=== PATIENT | male | born 1960 | race Caucasian/White ===

== ENCOUNTER → 2021-12-23 | Outpatient (CLI) | payer BC | END | disposition home or self-care (01) | LOC: LABWHC1 09:05 | PROVIDERS: ATTEND Emergency Medicine | DX: Z20.822 Contact with and (suspected) exposure to COVID-19 (principal) | CPT/HCPCS: 87635 ==

== ENCOUNTER → 2022-01-21 | Outpatient (CLI) | payer BC | END | disposition home or self-care (01) | LOC: LABWHC1 09:13 | PROVIDERS: ATTEND Surgery | DX: D37.4 Neoplasm of uncertain behavior of colon (principal) | CPT/HCPCS: 36415; 82378 ==

== ENCOUNTER → 2022-01-22 | Outpatient (CLI) | payer BC ==
[2022-01-22 23:05] LABS: Basophils # (A) 0.05 X 10*3/uL (0.00-0.10); Basophils % (A) 0.5 %; Eosinophils # (A) 0.13 X 10*3/uL (0.04-0.35); Eosinophils % (A) 1.3 %; HGB 13.3 g/dL (13.0-17.0); Immature Grans, Automated 0.5 %; Lymphocytes # (A) 1.58 X 10*3/uL (0.90-5.00); MCH 28.7 pg (27.0-32.0); MCHC 30.9 g/dL (32.0-37.0); MCV 92.7 fL (80.0-97.0); Mean Platelet Volume 9.4 fL (9.5-12.2); Monocytes # (A) 0.64 X 10*3/uL (0.20-1.00); Monocytes % (A) 6.5 %; NRBC Per 100 WBC 0 /100 WBCS (0.0-0.0); Neutrophils # (A) 7.41 X 10*3/uL (1.80-7.70); Neutrophils % (A) 75.2 %; Platelet Count 282 X 10*3/uL (140-440); RBC 4.64 X 10*6/uL (4.40-5.60); RDW 12.7 % (11.5-14.5); WBC 9.86 X 10*3/uL (4.50-10.00)
[2022-01-23 02:14] LABS: African American GFR (CKD) 19.9 (60.0-200.0); Albumin 4.8 g/dL (3.8-4.9); BUN/Creat Ratio 13.58 Ratio (12.00-20.00); Blood Urea Nitrogen 48.9 mg/dL (9.0-27.0); Calcium 10.1 mg/dL (8.7-10.3); Globulin 2.4 g/dL (1.6-3.3); Non-African American GFR(CKD) 17.2 (60.0-200.0); Potassium 4.4 mmol/L (3.5-5.5); Total Bilirubin 0.3 mg/dL (0.30-1.20); Total Protein 7.2 g/dL (6.2-8.2)
== END | disposition home or self-care (01) ==
LOC: LABWHC1 14:27
PROVIDERS: ATTEND Family Medicine
DX: Z01.89 Encounter for other specified special examinations (principal)
CPT/HCPCS: 36415; 80053; 85025

== ENCOUNTER → 2022-01-25 | Outpatient (CLI) | payer BC ==
--- NOTE | 2022-01-27 00:06 | MR ---
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 Neoplasm of uncertain behavior of c olon. COMPARISON: None TECHNIQUE: Multiplanar multi-sequence imaging was performed without contrast. Post contrast imaging was performed. Post IV contrast subtraction images were also submitted for review. IV Contrast: None FINDINGS: LOWER CHEST: No gross irregularity. ABDOMEN Liver: Unremarkable. Gallbladder and Bile ducts: Unremarkable. Pancreas: Subcentimeter pancreatic tail cyst measuring 6 mm. No ductal dilatation or suspicious mass. Spleen: Unremarkable. Adrenal glands: Unremarkable. Kidneys: Lobular contour to the kidneys with atrophic appearance. Bilateral high T2 renal cysts measu ring up tor 2.1 cm and the left.. Stomach and Bowel: Unremarkable as visualized. Peritoneum: No evidence of pneumoperitoneum, free fluid, or adenopathy. Vasculature: Unremarkable. No aortic aneurysm. Abdominal wall: Fat-containing right inguinal hernia. Musculoskeletal: The osseous structures appear intact. Reproductive: Prostate: Unremarkable. Seminal vesicle's: Unremarkable. Testes: Unremarkable. IMPRESSION: 1. No evidence for lymphadenopathy or evidence for malignancy. There is no prior imaging due to comp are to. If prior imaging is made available with report comparison with addendum can be made. 2. Atrophic kidneys with cortical thinning bilaterally. 3. Subcentimeter pancreatic tail cyst measuring 6 mm. 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 Consider follow-up in one year.
== END | disposition home or self-care (01) ==
LOC: RADMRIMAIN 19:45
PROVIDERS: ATTEND Surgery
DX: D37.4 Neoplasm of uncertain behavior of colon (principal); N26.1 Atrophy of kidney (terminal); K86.89 Other specified diseases of pancreas
CPT/HCPCS: 72195; 74181

== ENCOUNTER → 2022-11-10 | Outpatient (CLI) | payer BC ==
[2022-11-10 16:07] LABS: ALT 14 U/L (10-49); AST 16 U/L (14-35); Albumin 4.2 d/dL (3.8-4.9); Albumin/Globulin Ratio 1.56 Ratio (1.60-3.17); Alkaline Phosphatase 188 U/L (41-126); BUN/Creat Ratio 11.58 Ratio (12.00-20.00); Calcium 10.2 mg/dL (8.7-10.3); Carbon Dioxide 18.6 mmol/L (21.6-31.8); Chloride 111 mmol/L (96-109); Globulin 2.7 d/dL (1.6-3.3); Glucose 126 mg/dL (70-110); Potassium 5.4 mmol/L (3.5-5.5); Sodium 147 mmol/L (135-145); Total Bilirubin 0.2 mg/dL (0.3-1.2); Total Protein 6.9 d/dL (6.2-8.2)
== END | disposition home or self-care (01) ==
LOC: LABWHC1 10:13
PROVIDERS: ATTEND Family Medicine
DX: N18.5 Chronic kidney disease, stage 5 (principal); L40.59 Other psoriatic arthropathy
CPT/HCPCS: 36415; 80053; 83970; 85652

== ENCOUNTER → 2022-11-12 | Outpatient (CLI) | payer BC ==
--- NOTE | 2022-11-12 17:19 | XR ---
EXAMINATION TYPE: XR wrist complete RT DATE OF EXAM: 11/12/2022 COMPARISON: NONE HISTORY: 61-year-old male M25.531 PAIN IN RIGHT WRIST TECHNIQUE: 4 views FINDINGS: Degenerative change distal radioulnar joint. Some joint space narrowing is also present at the radioc arpal joint. There is slight sclerosis at the ulnar proximal aspect of the lunate bone. No acute frac ture, subluxation, or dislocation seen. IMPRESSION: 1. 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 2. Moderate to severe degenerative change distal radioulnar joint. 3. 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 4. No acute osseous abnormality seen.
== END | disposition home or self-care (01) ==
LOC: RADXRMAIN 15:21
PROVIDERS: ATTEND Family Medicine
DX: M19.031 Primary osteoarthritis, right wrist (principal)

== ENCOUNTER → 2023-05-26 | Outpatient (CLI) | payer BC ==
--- NOTE | 2023-05-26 17:10 | US ---
EXAMINATION TYPE: US thyroid st tissue head/neck DATE OF EXAM: 05/26/2023 COMPARISON: NONE CLINICAL INDICATION: Male, 62 years old with history of E04.2 NONTOXIC MULTINODULAR GOITER; GLAND SIZE: Right Lobe: 5.1 x 1.2 x 1.4 cm Overall Parenchyma: heterogeneous Left Lobe: 4.5 x 0.9 x 1.0 cm Overall Parenchyma: heterogeneous Isthmus Thickness: 0.2 cm NODULES RIGHT: # of nodules measured on right: 0 LEFT: # of nodules measured on left: 0 ISTHMUS: # of nodules measured in the isthmus: 0 Bilateral neck scanned, no evidence of lymphadenopathy. IMPRESSION: 1. No thyroid nodules 2. No thyromegaly 2017 ACR TI-RADS LEVEL: 0 *Highest TI-RADS level nodule reported
== END | disposition home or self-care (01) ==
LOC: RADUSWWP 10:14
PROVIDERS: ATTEND Family Medicine
DX: E04.2 Nontoxic multinodular goiter (principal)
CPT/HCPCS: 76536

== ENCOUNTER → 2023-05-26 | Outpatient (CLI) | payer BC ==
[2023-05-26 16:38] LABS: Chol/HDL Ratio 6.78 Ratio; LDL Cholesterol,Calculated 242.3 mg/dL (0.0-131.0); T4, Free (Free Thyroxine) 1.35 ng/dL (0.80-1.80)
== END | disposition home or self-care (01) ==
LOC: LABWHC1 09:27
PROVIDERS: ATTEND Family Medicine
DX: Z00.00 Encounter for general adult medical examination without abnormal findings (principal); Z12.5 Encounter for screening for malignant neoplasm of prostate; M10.00 Idiopathic gout, unspecified site; E03.8 Other specified hypothyroidism
CPT/HCPCS: 84439; 80061; 84443; 84550; 83036; 36415; G0103

== ENCOUNTER → 2023-07-28 | Outpatient (CLI) | payer BC ==
--- NOTE | 2023-07-31 21:02 | PE ---
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 Images are reviewed on the computer in the coronal, a xial, and sagittal planes. Reconstructed rotating images are created on independent workstation and reviewed on the computer. A non-contrast CT is performed in conjunction with the PET scan. Glucose level 114 mg/dL CT DLP: 632 mGycm, Automated exposure control for dose reduction was used. COMPARISON: CT None, PET/CT None, MRI: 01/25/2022 FINDINGS: Mediastinal SUV mean is 1.9. Hepatic parenchyma SUV mean is 3.2. SKULL BASE AND NECK: No suspicious radiotracer activity. Mucosal the left oropharynx demonstrates FDG avid mass which also appears involve the soft palate. Ma x SUV 16.2. No enlarged or FDG avid lymph nodes identified. CHEST, MEDIASTINUM, AND HILAR REGION: No suspicious radiotracer activity. ABDOMEN AND PELVIS: No suspicious radiotracer activity. MUSCULOSKELETAL STRUCTURES: No suspicious radiotracer activity. OTHER CT: Atherosclerosis of the arterial vasculature crowding the carotid bifurcations and coronary arteries. Colonic diverticulosis. Atrophic kidneys bilaterally. Fat-containing umbilical hernia. Milvia toneal dialysis tubing terminates in the lower pelvis. Posteromedially. Right fat-containing inguinal hernia. IMPRESSION: Abnormal FDG avid mass in the left oropharynx mucosa compatible with malignancy. No suspicious FDG av id enlarged lymph nodes identified at this time
== END | disposition home or self-care (01) ==
LOC: RADPETMAIN 10:53
PROVIDERS: ATTEND Otolaryngology
DX: C09.9 Malignant neoplasm of tonsil, unspecified (principal)
CPT/HCPCS: 78815; A9552

== ENCOUNTER → 2023-08-04 | Outpatient (CLI) | payer BC ==
[2023-08-04 14:38] LABS: Basophils # (A) 0.09 X 10*3/uL (0.00-0.10); Basophils % (A) 0.7 %; Eosinophils # (A) 0.47 X 10*3/uL (0.04-0.35); Eosinophils % (A) 3.6 %; HCT 38.2 % (39.6-50.0); HGB 11.8 g/dL (13.0-17.0); Lymphocytes # (A) 1.78 X 10*3/uL (0.90-5.00); Lymphocytes % (A) 13.6 %; MCH 28.2 pg (27.0-32.0); MCHC 30.9 g/dL (32.0-37.0); MCV 91.4 FL (80.0-97.0); Mean Platelet Volume 9.3 FL (9.5-12.2); Monocytes # (A) 1.07 X 10*3/uL (0.20-1.00); Monocytes % (A) 8.2 %; NRBC Per 100 WBC 0 X 10*3/uL (0.00-0.01); Neutrophils # (A) 9.59 X 10*3/uL (1.80-7.70); Neutrophils % (A) 73.1 %; Platelet Count 275 X 10*3/uL (140-440); RBC 4.18 X 10*6/uL (4.40-5.60); WBC 13.11 X 10*3/uL (4.50-10.00)
[2023-08-04 14:54] LABS: ALT 9 U/L (10-49); AST 15 U/L (14-35); Albumin 4.1 g/dL (3.8-4.9); Albumin/Globulin Ratio 1.78 Ratio (1.60-3.17); Alkaline Phosphatase 117 U/L (41-126); BUN/Creat Ratio 8.29 Ratio (12.00-20.00); Blood Urea Nitrogen 51.4 mg/dL (9.0-27.0); Carbon Dioxide 22.6 mmol/L (21.6-31.8); Chloride 105 mmol/L (96-109); Globulin 2.3 g/dL (1.6-3.3); Glucose 122 mg/dL (70-110); Magnesium 1.8 mg/dL (1.5-2.4); Potassium 4.1 mmol/L (3.5-5.5); Sodium 144 mmol/L (135-145); Total Bilirubin <0.2 mg/dL (0.3-1.2); Total Protein 6.4 g/dL (6.2-8.2)
== END | disposition home or self-care (01) ==
LOC: LABWHC1 10:18
PROVIDERS: ATTEND Internal Medicine Hematology & Oncology
DX: I12.9 Hypertensive chronic kidney disease with stage 1 through stage 4 chronic kidney disease, or unspecified chronic kidney disease (principal); N18.9 Chronic kidney disease, unspecified; E03.9 Hypothyroidism, unspecified
CPT/HCPCS: 36415; 80053; 83735; 85025

== ENCOUNTER 2023-08-15 08:41 | Day surgery (SDC) | payer BC ==
[2023-08-12 12:34] VITALS: BMI 23.3
[~2023-08-15 08:41] MED LIST: LACTATED RINGERS 1,000 ML IV SCH; METOCLOPRAMIDE 5 MG/ML 2 ML VIAL IVP PRN; Pre Op ABX Message 1 EACH MISC MISCELLANE ONE; fentaNYL (PF) 50 MCG/ML 2 ML AMP IV PRN
[2023-08-15 09:05] VITALS: TEMP 97
[2023-08-15] MEDS: IV FLUID CONTINUATION 1,000 ML IV ONE (09:16)
[2023-08-15] MEDS: SODIUM CHLORIDE 0.9% 1,000 ML BAG IV STA (09:19)
[2023-08-15] MEDS: HEPARIN SODIUM,PORCINE 5,000 UNIT/ML 1 ML VIAL SQ PRN (09:25)
[2023-08-15] MEDS: ONDANSETRON 4 MG/2 ML VIAL IVP ONE (09:25)
[2023-08-15] MEDS: ACETAMINOPHEN TAB 500 MG TAB PO PRN (09:25)
[2023-08-15] MEDS: DEXAMETHASONE SOD PHOSPHATE 4 MG/ML 1 ML VIAL IVP STA (09:26)
[2023-08-15] MEDS ORDERED: LIDOCAINE 1% INJ 10MG/ML (20 ML MDV) ONE (11:29)
[2023-08-15] MEDS ORDERED: PHENYLEPHRINE 10 MG/ML VIAL ONE (11:29)
[2023-08-15] MEDS ORDERED: KETAMINE HCL IN 0.9 % NACL 50 MG/5 ML SYRINGE ONE (11:29)
[2023-08-15] MEDS ORDERED: fentaNYL (PF) 50 MCG/ML 2 ML AMP ONE (11:29)
[2023-08-15] MEDS ORDERED: PROPOFOL 10 MG/ML 20 ML VIAL IV ONE (11:29)
[2023-08-15] MEDS ORDERED: MIDAZOLAM 2 MG/2 ML VIAL ONE (11:29)
[2023-08-15] MEDS: SODIUM CHLORIDE 0.9% 50 ML with ceFAZolin 2,000 MG IV ONE (11:34)
--- NOTE | 2023-08-15 11:38 | P.GSHP ---
History of Present Illness H&P Date: 08/15/23 Chief Complaint: Left tonsillar cancer 62-year-old male here for Port-A-Cath placement. Patient will begin chemoradiation later this week or early next week. Patient has not had a port previously. Has poor IV access. Past Medical History Past Medical History: Cancer, Dialysis, Hypertension, Pneumonia, Renal Disease, Thyroid Disorder Additional Past Medical History / Comment(s): Recently dx June 2023- "cancer lt tonsil, tongue, and soft pallet". "My left eye and left side of face is swollen." Some lt ear pain r/t dx. Paritoneal dialysis. "Lt kidney is necrotic." Hx stage II colon cancer 2 years ago no radiation or chemo. Colostomy bag w/reversal. Gout. History of Any Multi-Drug Resistant Organisms: None Reported Past Surgical History: Appendectomy Additional Past Surgical History / Comment(s): "Lower anterior ostimosis." " Ileostomy- temporary". Kidney surgery in childhood. Scope to lt shouler t/o bone spurs. "Slightly torn Rt knee patella tendon- had surgery. Past Anesthesia/Blood Transfusion Reactions: No Reported Reaction Additional Past Anesthesia/Blood Transfusion Reaction / Comment(s): No hx of blood transfusion. Smoking Status: Never smoker - Past Family History Mother Family Medical History: Cancer Additional Family Medical History / Comment(s): Breast cancer Father Family Medical History: Cancer Additional Family Medical History / Comment(s): prostate cancer Medications and Allergies Home Medications Medication Instructions Recorded Confirmed Type Febuxostat [Uloric] 80 mg PO HS 08/12/23 08/15/23 History Furosemide [Lasix] 40 mg PO BID 08/12/23 08/15/23 History Levothyroxine Sodium [Synthroid] 100 mcg PO 08/12/23 08/15/23 History Metoprolol Tartrate [Lopressor] 25 mg PO BID 08/12/23 08/15/23 History Omeprazole [PriLOSEC] 20 mg PO AC-BRKFST PRN 08/12/23 08/15/23 History Vit B/Folic Acid(Unknown Dose) 1 dose PO QAM 08/12/23 08/12/23 History Vitamin D(Unknown Dose) 5,000 units PO QAM 08/12/23 History Zolpidem Tartrate [Ambien] 5 mg PO HS 08/12/23 08/15/23 History amLODIPine BESYLATE [Amlodipine 10 mg PO HS 08/12/23 08/15/23 History Besylate] traZODone HCL [Desyrel] 100 mg PO HS 08/12/23 08/15/23 History Allergies Allergy/AdvReac Type Severity Reaction Status Date / Time No Known Allergies Allergy Verified 08/15/23 08:56 Surgical - Exam Vital Signs Temp Pulse Resp BP Pulse Ox 97.0 F L 94 16 132/64 98 08/15/23 09:04 08/15/23 09:04 08/15/23 09:04 08/15/23 09:04 08/15/23 09:04 Physical exam: General: Well-developed, well-nourished HEENT: Normocephalic, sclerae nonicteric Abdomen: Nontender, nondistended Extremities: No edema Neuro: Alert and oriented Results - Labs 08/15/23 09:15 Diabetes panel 08/15/23 Range/Units 09:15 Potassium 3.9 (3.5-5.1) mmol/L Pituitary panel 08/15/23 Range/Units 09:15 Potassium 3.9 (3.5-5.1) mmol/L Adrenal panel 08/15/23 Range/Units 09:15 Potassium 3.9 (3.5-5.1) mmol/L Assessment and Plan (1) Tonsillar cancer Narrative/Plan: Will proceed with Port-A-Cath placement at this time. Risks of bleeding, infection, DVT, pneumothorax, catheter malfunction, anesthesia related complications were discussed. The patient understands and wishes to proceed. Current Visit: Yes Status: Acute Code(s): C09.9 - MALIGNANT NEOPLASM OF TONSIL, UNSPECIFIED SNOMED Code(s): 432094866
[2023-08-15] MEDS: BUPIVACAINE (PF) 0.25% 30 ML VIAL SQ ONE ×2 (11:56)
[2023-08-15] MEDS: HEPARIN SODIUM,PORCINE 100 UNIT/ML 5 ML VIAL IV ONE (12:07)
[2023-08-15] MEDS ORDERED: NALOXONE 0.4 MG/ML 1 ML VIAL IV PRN (12:16)
[2023-08-15] MEDS ORDERED: HYDROcodone/APAP 5-325MG 1 EACH TAB PO PRN (12:16)
--- NOTE | 2023-08-15 12:18 | P.OP ---
Date of Procedure: 08/15/23 Procedure(s) Performed: PREOPERATIVE DIAGNOSIS: Tonsillar cancer POSTOPERATIVE DIAGNOSIS: Same PROCEDURE: Port-A-Cath placement with fluoroscopic and ultrasound guidance SURGEON: Rachel EBL: Minimal ANESTHESIA: Sedation and local COMPLICATIONS: None OPERATIVE PROCEDURE: Patient was brought and placed on the operative table in the supine position. The patient was placed under general anesthesia at that time. The chest and neck were prepped and draped in usual sterile fashion. The ultrasound probe was used to identify the location of the right internal jugular vein. The skin was localized with lidocaine. The Seldinger needle was advanced into the IJ under ultrasound guidance. The wire was advanced through the needle under fluoroscopic guidance into the superior vena cava. A port pocket was created in the right infraclavicular location. The catheter was tunneled from the wire entrance site to the port pocket. The port was then connected to the catheter. The dilator introducer was threaded over the guidewire. The guidewire and dilator were then removed. The catheter was advanced through the introducer and introducer was then removed. The tip was seen to be in the right atrial junction via fluoroscopy. A picture of the radiograph showing the tip of the catheter was taken. Port was flushed with both saline and a Hep-Lock solution. There was good flow both in and out of the port. The port was sutured in underlying tissues using 3-0 silk sutures. The subcutaneous tissues were reapproximated using 3-0 Vicryl sutures and the skin at both locations using 4-0 Monocryl sutures. Skin glue and sterile dressings then applied. DISPOSITION: Stable to recovery room
--- NOTE | 2023-08-15 12:28 | FL ---
EXAMINATION TYPE: FL guided central line placemt Intraoperative/procedural fluoroscopic services were provided. Total fluoroscopy time is 3 seconds with a total of 1 submitted images to PACS. Please see the operative/procedural note for further details. DAP: 0.1655 mGym2
--- NOTE | 2023-08-15 12:58 | XR ---
EXAMINATION TYPE: XR chest 1V confirm line [facility] DATE OF EXAM: 08/15/2023 COMPARISON: NONE HISTORY: 62 year-old male check line TECHNIQUE: Single frontal view of the chest is obtained. FINDINGS: Right anterior chest wall injection port. Catheter tip at the lower SVC. There is superior hairpin turn is outside the field of view. Heart normal size. No appreciable pneumothorax. Mild inte rstitial prominence and hyperinflation. Otherwise, no consolidation or pleural effusion. IMPRESSION: 1. Right anterior chest wall injection port. The superior hairpin turn is outside the field of view. Tip at the lower SVC level. 2. COPD. Interstitial prominence probably chronic.
[2023-08-15 13:28] VITALS: BP 109/69; PULSE 62; RESP 18
== END 2023-08-15 13:41 | disposition home or self-care (01) ==
LOC: OR 08:41
PROVIDERS: ATTEND Surgery
DX: C09.0 Malignant neoplasm of tonsillar fossa (principal); I10 Essential (primary) hypertension; E07.9 Disorder of thyroid, unspecified; J44.9 Chronic obstructive pulmonary disease, unspecified; M10.9 Gout, unspecified; N28.9 Disorder of kidney and ureter, unspecified; Z79.890 Hormone replacement therapy; Z85.038 Personal history of other malignant neoplasm of large intestine; Z90.49 Acquired absence of other specified parts of digestive tract; Z93.3 Colostomy status; Z99.2 Dependence on renal dialysis; Z79.899 Other long term (current) drug therapy
CPT/HCPCS: 84132; 77001; 36561; C1788; J2250; J1644; J1642; J1100; J2405; J0690; J2001; J3010; J2704; J2371; J0665

== ENCOUNTER 2023-09-01 12:45 | Day surgery (SDC) | payer BC ==
[2023-09-01] MEDS ORDERED: LIDOCAINE 1% INJ 10MG/ML (20 ML MDV) ONE (13:15)
[2023-09-01] MEDS ORDERED: fentaNYL (PF) 50 MCG/ML 2 ML AMP ONE (13:15)
[2023-09-01 13:17] VITALS: PULSE 80; RESP 16; TEMP 979
[2023-09-01] MEDS: IOPAMIDOL-370 100ML BTL INJ ONE (13:31)
--- NOTE | 2023-09-01 15:28 | P.OP ---
Date of Procedure: 09/01/23 Description of Procedure: Preoperative diagnosis: Malfunctioning port Postoperative diagnosis: Same Procedure: Portogram with fluoroscopic interpretation Surgeon: Josephine Robles D.O. EBL: Less than 5 cc IV fluids: None Urine output: None Drains: None Complications: None immediately apparent Condition: Stable to recovery Operative indication and findings: Patient is a 62-year-old male undergoing chemotherapy and has been recently having issues with his port malfunctioning. He is here today for evaluation. Risk and benefits were discussed including but not limited to bleeding, infection. He seems understood and was willing to proceed. Procedure in detail: The patient was taken to the special suite and placed in supine position. The chest wall port was cleansed and draped in usual sterile fashion. Initially utilizing the fluoroscopy, an image was obtained. There was some evidence of redundancy of the catheter itself however no obvious kinking or loops. Due to this the decision was made to access. Access was obtained with mild difficulty in aspiration of the port however it flushed very easily. A portogram was performed showing a widely patent outflow with the catheter in good resting position in the cavoatrial junction. There is no significant visualization of fibrinous Sheath. The procedure was concluded and the Ron needle was removed and a dressing was placed. May utilize the catheter for infusion. Flushing normally on imaging with good position.
== END 2023-09-01 13:48 | disposition home or self-care (01) ==
LOC: CATHCVL 12:45
PROVIDERS: ATTEND Surgery
DX: T85.618A Breakdown (mechanical) of other specified internal prosthetic devices, implants and grafts, initial encounter (principal); Z79.890 Hormone replacement therapy; Z79.899 Other long term (current) drug therapy; Y84.8 Other medical procedures as the cause of abnormal reaction of the patient, or of later complication, without mention of misadventure at the time of the procedure
CPT/HCPCS: 36598; Q9967

== ENCOUNTER → 2024-01-19 | Outpatient (CLI) | payer BC ==
--- NOTE | 2024-01-19 18:39 | PE ---
EXAMINATION TYPE: PET CT fusion skull to thigh DATE OF EXAM: 01/19/2024 CLINICAL INDICATION:Male, 63 years old with history of C09.8 HEAD AND NECK CANCER; history of colon c ancer 2020. TECHNIQUE: Following the intravenous administration of 13.07 mCi of F-18 FDG, whole body images are performed from the skull base to the midthigh. Images are reviewed on the computer in the coronal, axial, and sagittal planes. Reconstructed rotating images are created on independent workstation and reviewed on the computer. A non-contrast CT is performed in conjunction with the PET scan. Glucose level 106 mg/dL CT DLP: 500.95/632.46 mGycm, Automated exposure control for dose reduction was used. COMPARISON: CT None, PET/CT 07/28/2023, MRI: 01/25/2022 FINDINGS: Mediastinal SUV mean is 2.0. Hepatic parenchyma SUV mean is 2.6. SKULL BASE AND NECK: Decreased size and FDG activity within the left oropharynx with a maximum SUV now of 7.3, previously 16.2. No enlarged or FDG avid lymph nodes identified. CHEST, MEDIASTINUM, AND HILAR REGION: No suspicious radiotracer activity. ABDOMEN AND PELVIS: There is again focal radiotracer uptake identified within the descending colon with a maximum SUV of 31.8 (image 183/125, fused axial series). Additional regions of probable physiologic uptake within the bowel. MUSCULOSKELETAL STRUCTURES: No suspicious radiotracer activity. OTHER CT: Right anterior chest wall IJ Mediport catheter with distal tip terminating in the mid SVC. Atherosclerosis of the arterial vasculature crowding the carotid bifurcations and coronary arteries. Colonic diverticulosis. Atrophic kidneys bilaterally. Peritoneal dialysis tubing terminates in the lo wer pelvis. Small amount of free fluid in the pelvis. Pneumoperitoneum. Right fat-containing inguinal hernia. Postsurgical changes of the rectum with anastomosis. Additional anastomosis involving the sm all bowel within the pelvis. IMPRESSION: 1. Positive response to therapy with decreased size and FDG activity involving the left oropharyngea l cancer. 2. Redemonstration of focal FDG activity involving the descending colon which raises possibility of recurrent/residual colon cancer versus a focal infectious/inflammatory process or physiologic uptake. Direct visualization is recommended. 3. Pneumoperitoneum which is likely related to peritoneal dialysis. Correlate clinically. [facility], , 01/19/2024 6:36 PM
== END | disposition home or self-care (01) ==
LOC: RADPETMAIN 09:55
PROVIDERS: ATTEND Radiology Radiation Oncology
DX: C09.8 Malignant neoplasm of overlapping sites of tonsil (principal); C10.9 Malignant neoplasm of oropharynx, unspecified; Z85.038 Personal history of other malignant neoplasm of large intestine
CPT/HCPCS: 78815; A9552

== ENCOUNTER → 2024-01-26 | Outpatient (CLI) | payer BC ==
[2024-01-26 15:26] LABS: Anion Gap 13.8 mmol/L (4.00-12.00); Carbon Dioxide 28.2 mmol/L (21.6-31.8); Magnesium 2.6 mg/dL (1.5-2.4); Potassium 3.8 mmol/L (3.5-5.5); T4, Free (Free Thyroxine) 1.81 ng/dL (0.80-1.80)
== END | disposition home or self-care (01) ==
LOC: LABWHC1 08:15
PROVIDERS: ATTEND Internal Medicine Nephrology
DX: N18.6 End stage renal disease (principal); R79.9 Abnormal finding of blood chemistry, unspecified; E03.8 Other specified hypothyroidism
CPT/HCPCS: 36415; 80051; 83735; 84439; 84443

== ENCOUNTER → 2024-02-16 | Outpatient (CLI) | payer BC | END | disposition home or self-care (01) | LOC: LABWHC1 16:17 | DX: C18.6 Malignant neoplasm of descending colon (principal) | CPT/HCPCS: 36415; 82378 ==

== ENCOUNTER 2024-05-04 09:33 | Day surgery (SDC) | payer BC ==
[2024-05-02 11:06] VITALS: BMI 21.4
[~2024-05-04 09:33] MED LIST changes: +HYDROmorphone 0.5 MG/0.5 ML SYRINGE IVP PRN; -METOCLOPRAMIDE 5 MG/ML 2 ML VIAL IVP PRN; +MIDAZOLAM 2 MG/2 ML VIAL IV PRN; -Pre Op ABX Message 1 EACH MISC MISCELLANE ONE; +SCOPOLAMINE 1 MG/72 HR PATCH TRANSDERM ONE; -fentaNYL (PF) 50 MCG/ML 2 ML AMP IV PRN
[2024-05-04] MEDS: ACETAMINOPHEN TAB 500 MG TAB PO PRN (10:00)
[2024-05-04 10:23] VITALS: TEMP 97.4
[2024-05-04] MEDS: SODIUM CHLORIDE 0.9% 500 ML 500 ML IV ONE (10:24)
[2024-05-04] MEDS: ONDANSETRON 4 MG/2 ML VIAL IVP ONE (10:25)
[2024-05-04] MEDS: HEPARIN SODIUM,PORCINE 5,000 UNIT/ML 1 ML VIAL SQ PRN (10:25)
[2024-05-04] MEDS: DEXAMETHASONE SOD PHOSPHATE 4 MG/ML 1 ML VIAL IV ONE (10:25)
--- NOTE | 2024-05-04 10:40 | P.GSHP ---
History of Present Illness H&P Date: 05/04/24 Chief Complaint: Head neck cancer 63-year-old male known to our service. Patient had previous Port-A-Cath placed for head neck cancer treatment. Has done well with that. Recent studies show no active disease. Here today for Port-A-Cath removal. Past Medical History Past Medical History: Cancer, Dialysis, Hypertension, Pneumonia, Renal Disease, Thyroid Disorder Additional Past Medical History / Comment(s): June 2023- "cancer of left tonsil, tongue, and soft palate". Peritoneal dialysis nightly. "Let kidney is necrotic." Hx stage II colon cancer 2021, no radiation or chemo, had colostomy and which was later reversed. Gout, no problems in a few yrs. History of Any Multi-Drug Resistant Organisms: None Reported Past Surgical History: Appendectomy, Orthopedic Surgery Additional Past Surgical History / Comment(s): "Lower anterior ostimosis." "Ileostomy- temporary". Kidney surgery in childhood. Left shoulder arthroscopy, right knee surgery. Past Anesthesia/Blood Transfusion Reactions: No Reported Reaction Additional Past Anesthesia/Blood Transfusion Reaction / Comment(s): No hx of blood transfusion. Smoking Status: Never smoker - Past Family History Mother Family Medical History: Cancer Additional Family Medical History / Comment(s): Breast cancer. Father Family Medical History: Cancer Additional Family Medical History / Comment(s): Prostate cancer. Medications and Allergies Home Medications Medication Instructions Recorded Confirmed Type Levothyroxine Sodium [Synthroid] 100 mcg PO HS 08/12/23 05/04/24 History Metoprolol Tartrate [Lopressor] 25 mg PO HS 08/12/23 05/04/24 History Omeprazole [PriLOSEC] 20 mg PO AC-BRKFST PRN 08/12/23 05/04/24 History Zolpidem Tartrate [Ambien] 5 mg PO HS 08/12/23 05/04/24 History HYDROcodone/APAP 5-325MG [[place] 1 tab PO Q4HR PRN 08/31/23 05/04/24 History 5-325] Ondansetron [Zofran] 4 mg PO Q12H PRN 09/01/23 05/04/24 History Colchicine 0.6 mg PO DAILY PRN 05/02/24 05/04/24 History Febuxostat 40 mg PO HS 05/02/24 05/04/24 History Vitamin B Complex 1 each PO QAM 05/02/24 05/04/24 History Vitamin D (Unknown Dose) 1 tab PO DAILY 05/02/24 05/04/24 History traZODone HCL [Desyrel] 100 mg PO HS 05/02/24 05/04/24 History Allergies Allergy/AdvReac Type Severity Reaction Status Date / Time No Known Allergies Allergy Verified 05/04/24 09:56 Surgical - Exam Vital Signs Temp Pulse Resp BP Pulse Ox 97.4 F L 69 18 137/66 99 05/04/24 10:22 05/04/24 10:22 05/04/24 10:22 05/04/24 10:22 05/04/24 10:22 Physical exam: General: Well-developed, well-nourished HEENT: Normocephalic, sclerae nonicteric Abdomen: Nontender, nondistended Extremities: No edema Neuro: Alert and oriented Results - Labs 05/04/24 10:18 Diabetes panel 05/04/24 Range/Units 10:18 Potassium 4.3 (3.5-5.1) mmol/L Pituitary panel 05/04/24 Range/Units 10:18 Potassium 4.3 (3.5-5.1) mmol/L Adrenal panel 05/04/24 Range/Units 10:18 Potassium 4.3 (3.5-5.1) mmol/L Assessment and Plan (1) Tonsillar cancer Narrative/Plan: Will proceed with Port-A-Cath removal at this time. Current Visit: No Status: Acute Code(s): C09.9 - MALIGNANT NEOPLASM OF TONSIL, UNSPECIFIED SNOMED Code(s): 628079196
[2024-05-04] MEDS ORDERED: MIDAZOLAM 2 MG/2 ML VIAL ONE (11:47)
[2024-05-04] MEDS ORDERED: fentaNYL (PF) 50 MCG/ML 2 ML AMP ONE (11:47)
[2024-05-04] MEDS ORDERED: PROPOFOL 10 MG/ML 20 ML VIAL IV ONE (11:47)
[2024-05-04] MEDS: BUPIVACAINE (PF) 0.25% 30 ML VIAL SQ ONE ×2 (12:00→12:01)
[2024-05-04 12:25] VITALS: RESP 16
[2024-05-04 12:35] VITALS: BP 108/74; PULSE 60
--- NOTE | 2024-05-04 12:44 | P.OP ---
Date of Procedure: 05/04/24 Procedure(s) Performed: PREOPERATIVE DIAGNOSIS: Tonsillar cancer POSTOPERATIVE DIAGNOSIS: Same PROCEDURE: Port-A-Cath removal SURGEON: Rachel EBL: Minimal ANESTHESIA: Sedation COMPLICATIONS: None OPERATIVE PROCEDURE: Patient was placed in the supine position. The patient was sedated per anesthesia that time. The chest was prepped and draped in the usual sterile fashion. The skin was localized with Marcaine solution. The previous incision was re-incised using a scalpel. The port was easily excised using accommodation of blunt dissection sharp dissection and electrocautery. The subcutaneous tissues were reapproximated using 3-0 Vicryl sutures. The skin was reapproximated using 4-0 Monocryl sutures. Skin glue was then applied. DISPOSITION: Stable to recovery room
== END 2024-05-04 12:53 | disposition home or self-care (01) ==
LOC: OR 09:33
PROVIDERS: ATTEND Surgery
DX: Z45.2 Encounter for adjustment and management of vascular access device (principal); I12.9 Hypertensive chronic kidney disease with stage 1 through stage 4 chronic kidney disease, or unspecified chronic kidney disease; N18.9 Chronic kidney disease, unspecified; E07.9 Disorder of thyroid, unspecified; Z79.890 Hormone replacement therapy; Z85.038 Personal history of other malignant neoplasm of large intestine; Z90.49 Acquired absence of other specified parts of digestive tract; Z79.899 Other long term (current) drug therapy; Z85.89 Personal history of malignant neoplasm of other organs and systems
CPT/HCPCS: 84132; 36590; J2250; J1644; J1100; J0690; J2405; J3010; J2704; J0665

== ENCOUNTER → 2024-06-22 | Outpatient (CLI) | payer BC ==
--- NOTE | 2024-06-22 13:58 | FL ---
EXAMINATION TYPE: FL barium swallow w video DATE OF EXAM: 06/22/2024 MODIFIED SWALLOW / DEGLUTITION STUDY CLINICAL HISTORY: Dysphagia. History of tonsillar/throat cancer. Patient had chemotherapy and radiati on treatment. TECHNIQUE: Deglutition study is performed utilizing thin liquid barium, barium thick pudding, and ba rium coated cracker. 1 minute of fluoro time and 1 images obtained. Total dose area product (DAP) i n uGy*m?, mGy*cm? (or similar): n/p COMPARISON: None. FINDINGS: The oral and pharyngeal phases show satisfactory initiation and propagation with all modali ties tested. Normal mastication is seen with solid modalities tested. There is no evidence of penet ration or aspiration with any modality tested. Moderate pharyngeal residue was appreciated with solid modalities. IMPRESSION: No aspiration seen. Please refer to speech therapist notes for further details if necess andrea. [facility], , 06/22/2024 1:56 PM
== END | disposition home or self-care (01) ==
LOC: RADFLMAIN 08:45
PROVIDERS: ATTEND Radiology Radiation Oncology
DX: C09.8 Malignant neoplasm of overlapping sites of tonsil (principal); Z92.21 Personal history of antineoplastic chemotherapy; Z92.3 Personal history of irradiation
CPT/HCPCS: 74230

== ENCOUNTER → 2024-07-19 | Outpatient (CLI) | payer BC ==
--- NOTE | 2024-07-19 17:16 | PE ---
EXAMINATION TYPE: PET CT fusion skull to thigh DATE OF EXAM: 07/19/2024 COMPARISON: No recent prior CT Prior PET/CT: 01/19/2024 CLINICAL INDICATION: Male, 63 years old with history of C09.8 malignant neoplasm tonsils, TECHNIQUE: Following the intravenous administration of 10.76 mCi of F-18 FDG, whole body images are performed PET CT fusion skull to thigh. Images are reviewed on the computer in the coronal, axial, a nd sagittal planes. Reconstructed rotating images are created on independent workstation and reviewe d on the computer. A localization and attenuation correction CT is performed in conjunction with th e PET scan. DLP: 840.5 mGycm SCAN: Subsequent Blood glucose: mg/dL Average Mediastinum SUV: Average Liver SUV: FINDINGS: NECK: THORAX: ABDOMEN: PELVIS: OSSEOUS STRUCTURES: LOCALIZATION CT: COMPARISON: IMPRESSION: 1. [facility], , 07/19/2024 5:14 PM
== END | disposition home or self-care (01) ==
LOC: RADPETMAIN 09:07
PROVIDERS: ATTEND Radiology Radiation Oncology
DX: C09.8 Malignant neoplasm of overlapping sites of tonsil (principal)
CPT/HCPCS: 78815; A9552